=== PATIENT | female | born 1955 | race Caucasian/White ===

== ENCOUNTER 2023-07-30 10:37 | Emergency (ER) | payer MEDICARE ==
--- NOTE | 2023-07-30 10:41 | ERPHSYRPT ---
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 Alvarez, who is undergoing outpatient workup for her intermittent chest pain. She describes the chest pain as substernal, central without radiation. It is a pressure more than a pain. She underwent a Cardiolite stress test on 07/13/2023. The impression reads normal ejection fraction of 64%. There is no scintigraphic evidence for exercise-induced reversible ischemia. There is no fixed or perfusion defects. The patient has no prior EKGs here at this hospital to compare today's EKG 2. Patient denies excessive stress. She does not feel that she has much stress. She herself has no history of cardiac disease. She has no known family history of cardiac disease and is not a smoker of tobacco. Patient does have a history of hypertension and hyperlipidemia. Patient has no bleeding or clotting disorders. Timing/Duration: intermittent (Intermittent for several months), worse (Symptoms worse today) Quality: pressure Location: substernal, central Severity of Pain-Max: mild Severity of Pain-Current: mild Modifying Factors: Improves With: nothing Associated Symptoms: denies symptoms Prior Chest Pain/Cardiac Workup: stress test, recently seen/treated Nitro Today/Relief: no nitro taken today Aspirin Treatment Today: 81 mg x 4, provided by ED Allergies/Adverse Reactions: No Known Drug Allergies Allergy (Verified 07/30/23 10:40) Home Medications: Atorvastatin Calcium [Lipitor 20MG Tablet] 20 mg PO HS 07/30/23 [History] Metoprolol Tartrate 25 mg [Lopressor 25MG Tab] 12.5 mg PO BID 07/30/23 [History] Ranolazine [Ranolazine ER] 500 mg PO BID 07/30/23 [History] Travel Risk - International Travel Have you traveled outside of the country in past 3 weeks: No - Emerging Infectious Disease Are you exhibiting symptoms associated with any current EIDs: No - Review of Systems Constitutional: No Symptoms Eyes: No Symptoms Ears, Nose, & Throat: No Symptoms Respiratory: No Symptoms Cardiac: Chest Pain (Described as a mild substernal, central nonradiating pressure) Abdominal/Gastrointestinal: No Symptoms Genitourinary Symptoms: No Symptoms Musculoskeletal: No Symptoms Skin: No Symptoms Neurological: No Symptoms Psychological: No Symptoms Endocrine: No Symptoms Hematologic/Lymphatic: No Symptoms Immunological/Allergic: No Symptoms All Other Systems: Reviewed and Negative - Past Medical History Pertinent Past Medical History: Yes - Past Surgical History Past Surgical History: Yes - Nursing Vital Signs Nursing Vital Signs: Initial Vital Signs O2 Sat by Pulse Oximetry 97 07/30/23 10:42 Pain Scale Pain Intensity 0 - Physical Exam General Appearance: no apparent distress, alert, anxiety Eye Exam: PERRL/EOMI, eyes nml inspection Ears, Nose, Throat Exam: normal ENT inspection, moist mucous membranes Neck Exam: normal inspection, non-tender, supple, full range of motion Respiratory Exam: normal breath sounds, chest tenderness (Described as a mild, substernal, nonradiating, central pressure), lungs clear, airway intact, No respiratory distress Cardiovascular Exam: regular rate/rhythm, normal heart sounds, normal peripheral pulses Gastrointestinal/Abdomen Exam: soft, normal bowel sounds, No tenderness Pelvic Exam: not done Rectal Exam: not done Back Exam: normal inspection, normal range of motion, No CVA tenderness, No vertebral tenderness Extremity Exam: normal inspection, normal range of motion, pelvis stable Neurologic Exam: alert, oriented x 3, cooperative, flight/transport nurse II-XII nml as tested, normal mood/affect, nml cerebellar function, nml station & gait, sensation nml Skin Exam: normal color, warm, dry Lymphatic Exam: No adenopathy SpO2 Interpretation: normal O2 Delivery: Room Air - Course Nursing assessment & vital signs reviewed: Yes EKG Interpreted by Me: RATE (72), Sinus Rhythm, NORMAL AXIS, NORMAL INTERVALS, NORMAL QRS, NORMAL ST-T, Other (No acute ischemia on today's twelve-lead EKG. No comparison twelve-lead EKG available.) Ordered Tests: Active Orders 24 hr Category Date Time Status Fire Prevention Research Engineer STAT Care 07/30/23 10:42 Active EKG-ER Only STAT Care 07/30/23 10:42 Active IV Insertion STAT Care 07/30/23 10:42 Active Pulse Oximetry (ED) STAT Care 07/30/23 10:42 Active CHEST 1 VIEW (PORTABLE) Stat Exams 07/30/23 10:42 Completed CHEST WITH CONTRAST [CT] Stat Exams 07/30/23 12:59 Completed CBC W DIFF Stat Lab 07/30/23 10:51 Completed CMP Stat Lab 07/30/23 10:51 Received D-DIMER QUANTITATIVE Stat Lab 07/30/23 10:42 Completed MAGNESIUM Stat Lab 07/30/23 10:51 Received PROTIME WITH INR Stat Lab 07/30/23 10:42 Completed TROPONIN Q4H Lab 07/30/23 18:45 Ordered Medication Summary Discontinued Medications Generic Name Dose Route Start Last Admin Trade Name Ivette PRN Reason Stop Dose Admin Aspirin 324 mg 07/30/23 10:42 07/30/23 10:57 Aspirin 81 Mg Tab.Chew PO 07/30/23 10:43 324 mg STAT ONE Administration Aspirin Confirm 07/30/23 10:56 Aspirin 81 Mg Tab.Chew Administered 07/30/23 10:57 Dose 324 mg .ROUTE .STK-MED ONE Sodium Chloride 500 mls @ 500 mls/hr 07/30/23 12:58 07/30/23 14:15 Sodium Chloride 0.9% 500 Ml IV 07/30/23 13:57 500 mls/hr .Q1H ONE Administration Sodium Chloride Confirm 07/30/23 14:14 Sodium Chloride 0.9% 500 Ml Administered 07/30/23 14:15 Dose 500 mls @ ud IV .STK-MED ONE Lab/Rad Data: Laboratory Result Diagrams 07/30/23 10:51 07/30/23 10:51 Laboratory Results 07/30/23 07/30/23 07/30/23 Range/Units 13:20 10:51 10:51 WBC (4.0-10.5) x10^3/uL RBC (4.1-5.4) x10^6/uL Hgb (12.0-16.0) g/dL Hct (35-47) % MCV (78-100) fL MCH (26-32) pg MCHC (32-36) g/dL RDW (11.5-14.0) % Plt Count (150-450) x10^3/uL MPV (7.5-11.0) fL Gran % (36.0-66.0) % Immature Gran % (Auto) (0.00-0.4) % Nucleat RBC Rel Count (0.00-0.1) % Eos # (Auto) (0-0.5) x10^3/uL Immature Gran # (Auto) (0.00-0.03) x10^3u/L Absolute Lymphs (auto) (1.0-4.6) x10^3/uL Absolute Monos (auto) (0.0-1.3) x10^3/uL Absolute Nucleated RBC (0.00-0.01) x10^3u/L Lymphocytes % (24.0-44.0) % Monocytes % (0.0-12.0) % Eosinophils % (0.00-5.0) % Basophils % (0.0-0.4) % Absolute Granulocytes (1.4-6.9) x10^3/uL Basophils # (0-0.4) x10^3/uL PT (9.4-12.5) SECONDS INR (0.8-3.0) D-Dimer (0.0-0.50) mg/L Sodium Direct 136 L (138-146) mmol/L Potassium 3.9 (3.5-4.9) mmol/L Chloride 103 (98-109) mmol/L Carbon Dioxide 24 (24-29) mmol/L Venous BUN 11 (8-26) mg/dL Creatinine 1.0 (0.6-1.3) mg/dL Glucose 112 H (70-105) mg/dL Ionized Calcium 1.17 (1.12-1.32) mmol/L Troponin 0.00 0.00 (0.00-0.03) ng/mL 07/30/23 07/30/23 Range/Units 10:51 10:42 WBC 7.3 (4.0-10.5) x10^3/uL RBC 4.02 L (4.1-5.4) x10^6/uL Hgb 12.6 (12.0-16.0) g/dL Hct 37.3 (35-47) % MCV 92.8 (78-100) fL MCH 31.3 (26-32) pg MCHC 33.8 (32-36) g/dL RDW 12.9 (11.5-14.0) % Plt Count 216 (150-450) x10^3/uL MPV 9.0 (7.5-11.0) fL Gran % 66.2 H (36.0-66.0) % Immature Gran % (Auto) 0.4 (0.00-0.4) % Nucleat RBC Rel Count 0.0 (0.00-0.1) % Eos # (Auto) 0.18 (0-0.5) x10^3/uL Immature Gran # (Auto) 0.03 (0.00-0.03) x10^3u/L Absolute Lymphs (auto) 1.67 (1.0-4.6) x10^3/uL Absolute Monos (auto) 0.53 (0.0-1.3) x10^3/uL Absolute Nucleated RBC 0.00 (0.00-0.01) x10^3u/L Lymphocytes % 22.9 L (24.0-44.0) % Monocytes % 7.3 (0.0-12.0) % Eosinophils % 2.5 (0.00-5.0) % Basophils % 0.7 (0.0-0.4) % Absolute Granulocytes 4.84 (1.4-6.9) x10^3/uL Basophils # 0.05 (0-0.4) x10^3/uL PT 10.3 (9.4-12.5) SECONDS INR 0.94 (0.8-3.0) D-Dimer 0.51 H (0.0-0.50) mg/L Sodium Direct (138-146) mmol/L Potassium (3.5-4.9) mmol/L Chloride (98-109) mmol/L Carbon Dioxide (24-29) mmol/L Venous BUN (8-26) mg/dL Creatinine (0.6-1.3) mg/dL Glucose (70-105) mg/dL Ionized Calcium (1.12-1.32) mmol/L Troponin (0.00-0.03) ng/mL - Progress Progress: improved, re-examined Air Movement: good Progress Note: 07/30/23 11:39 My medical decision making and the assignment of moderate complexity to this patient's medical issue is based on review of the patient's past medical history, review of patient's medication list, review the patient drug allergy list, history present illness and physical findings on examination. The workup in this patient includes placement of intravenous line, provide the patient with 481 mg aspirin, CBC, CMP, D-dimer, magnesium level, troponin level, twelve-lead EKG and chest x-ray. The chest x-ray was interpreted by the radiologist and I reviewed the impression. Impression states that there are no acute cardiopulmonary process. There is a small hiatal hernia present. 07/30/23 11:41 Differential diagnosis includes myocardial infarction, arrhythmias, electrolyte abnormalities, anxiety, muscle skeletal chest wall pain, gastroesophageal reflux disease, peptic ulcer disease, gallbladder issues. 07/30/23 12:02 Patient's heart score is 3. This is low risk of major acute cardiac event. We will repeat a 3-hour twelve-lead EKG and troponin level. If these are normal we will discharge the patient to home to follow-up with her iron plastic bullet maker. I interpreted the patient's laboratory data results. The patient does not have evidence of acute, emergent laboratory data results. The patient has a borderline D-dimer level of 0.51. High normal level is 0.50 I will discuss with her whether or not she wants to proceed with CT scan of the chest with contrast. I think the ability of a pulmonary embolism is low in this patient. 07/30/23 13:00 I had a long discussion with the patient regarding her elevated D-dimer level. I discussed the risk benefits and alternatives to the CT scan of the chest with contrast. I expressed my opinion that she has low risk for pulmonary embolus. I also expressed that there is low risk of the patient having an adverse reaction or side effect to the intravenous contrast. Patient has decided to proceed with the CT scan of the chest with contrast. 07/30/23 14:08 CT scan of the chest with contrast was interpreted by the radiologist and I reviewed the impression. The impression states negative for pulmonary embolism. Negative for acute cardiopulmonary abnormality. There is a hiatal hernia present with partial intrathoracic stomach. 07/30/23 14:24 This patient's repeat i-STAT troponin level is again normal. Patient has no evidence of any acute, emergent cause for her nonspecific chest pain. Blood Culture(s) Obtained: No Antibiotics given: No Counseled pt/family regarding: lab results, diagnosis, need for follow-up, rad results Medical Desision Making - Diagnostic Testing Diagnostic test were ordered, analyzed, and reviewed by me: Yes Radiological Interpretation: Reviewed by me, Teleradiologist Report - Risk of complications Low Risk: Low risk of morbidity from additional dx testing or treatment - Departure Departure Disposition: Home Clinical Impression: Nonspecific chest pain Condition: Stable Critical Care Time: No Referrals: NICOLASA BOURGEOIS NP [NON-STAFF PHY W/O PRIVILEGES] - Follow up/PCP as directed Additional Instructions: Take all your medications as prescribed. Call your iron plastic bullet maker today to make arranges for follow-up appointment to be seen within the next 3 days.
[2023-07-30 10:50] VITALS: TEMP 97.8
[2023-07-30 10:51] LABS: Absolute Neutrophil Ct (ANC) 4.84 x10^3/uL (1.4-6.9); BASOPHIL % 0.7 % (0.0-0.4); Basophil (Absolute #) 0.05 x10^3/uL (0-0.4); Eosinophil % 2.5 % (0.00-5.0); Eosinophil (Absolute #) 0.18 x10^3/uL (0-0.5); Hematocrit 37.3 % (35-47); Hemoglobin 12.6 g/dL (12.0-16.0); IMMATURE GRAN # 0.03 x10^3u/L (0.00-0.03); IMMATURE GRAN % 0.4 % (0.00-0.4); Lymphocyte (Absolute #) 1.67 x10^3/uL (1.0-4.6); Lymphocytes % 22.9 % (24.0-44.0); Mean Cell Volume 92.8 fL (78-100); Mean Corpuscular Hemoglobin 31.3 pg (26-32); Mean Corpuscular Hgb Concent. 33.8 g/dL (32-36); Monocyte (Absolute #) 0.53 x10^3/uL (0.0-1.3); Monocytes % 7.3 % (0.0-12.0); Neutrophil % 66.2 % (36.0-66.0); Platelet Count 216 x10^3/uL (150-450); Red Blood Count 4.02 x10^6/uL (4.1-5.4); Red Cell Distribution Width 12.9 % (11.5-14.0); White Blood Count 7.3 x10^3/uL (4.0-10.5)
[2023-07-30] MEDS ORDERED: BABY ASPIRIN 81 MG CHEW ONE (10:56)
[2023-07-30] MEDS: BABY ASPIRIN 81 MG CHEW PO ONE (10:57)
[2023-07-30 11:13] LABS: D-DIMER QUANTITATIVE 0.51 mg/L (0.0-0.50); INR 0.94 (0.8-3.0); PROTIME 10.3 SECONDS (9.4-12.5)
[2023-07-30 11:16] LABS: ISTAT K 3.9 mmol/L (3.5-4.9); ISTAT iCA 1.17 mmol/L (1.12-1.32)
--- NOTE | 2023-07-30 11:38 | XRAY ---
Indication: Chest pain. Comparison: March 23, 2018 Portable chest remains inflated and clear. Heart not enlarged with new small hiatal hernia. Bony thorax intact.
--- NOTE | 2023-07-30 13:54 | XRAY ---
Indication: Chest pain and short of breath. Elevated d-dimer. Multiple contiguous axial images obtained through the chest using 80 cc Isovue 370 contrast and PE protocol. Comparison: None Good opacification of the pulmonary arteries to include the lobar and segmental branches. No pulmonary embolus. Heart not enlarged. Aorta is normal in course and caliber. No pathologic mediastinal/hilar lymphadenopathy. Moderate-sized hiatal hernia with partial intrathoracic stomach. Lungs inflated and clear. Bony thorax intact with minimal/mild degenerative changes throughout the spine. Limited upper abdomen demonstrates 1.4 cm left mid renal cortical cyst. Impression: 1. Negative pulmonary embolus. No acute cardiopulmonary abnormalities. 2. Chronic findings including hiatal hernia with partial intrathoracic stomach, multilevel degenerative spondylosis, and left renal cyst.
[2023-07-30 14:07] VITALS: RESP 16
[2023-07-30] MEDS ORDERED: Sodium Chloride 0.9% 500 ML 500 ML IV ONE (14:14)
[2023-07-30] MEDS: Sodium Chloride 0.9% 500 ML 500 ML IV ONE (14:15)
[2023-07-30 14:48] VITALS: BP 118/74; PULSE 68; O2SAT 97
== END 2023-07-30 14:58 | disposition home or self-care (01) ==
LOC: ED 10:37
DX: R07.9 Chest pain, unspecified (principal); I10 Essential (primary) hypertension; E78.5 Hyperlipidemia, unspecified; Z79.899 Other long term (current) drug therapy
CPT/HCPCS: 36000; 36415; 71045; 71260; 80047; 80053; 83735; 84484; 85025; 85379; 85610; 93005; 93041; 94760; 99284; A9270-GY